=== PATIENT | male | born 1965 | race Caucasian/White ===

== ENCOUNTER 2017-04-16 10:32 | Emergency (ER) | payer BC ==
[~2017-04-16] VITALS: Ht 188 cm; Wt 96.0 kg
[2017-04-16 10:34] VITALS: Ht 188 cm; Wt 96.0 kg
[2017-04-16] MEDS ORDERED: ACETAMINOPHEN 500 MG TAB PO STA (11:29)
[2017-04-16] MEDS ORDERED: DIPHTH/TET/ACEL PERTUSS (ADULT) 0.5 ML VIAL IM* ONE (11:30)
[2017-04-16] MEDS ORDERED: LIDOCAINE 2% (MDV) 20 ML INJ INJ ONE (11:30)
[2017-04-16] MEDS ORDERED: CEPH-443 PO (12:42)
[2017-04-16] MEDS ORDERED: HYDR-906 PO (12:42)
--- NOTE | 2017-04-16 13:12 | ERD ---
ER Documentation Chief Complaint Date/Time DATE: 04/16/17 TIME: 13:04 Chief Complaint left thumb laceration HPI This is a 51 year old male presenting to the emergency department complaining of a laceration to the volar aspect of his left thumb status post getting injured with a knife while cooking an hour prior to being seen. Patient states the pain is minimal, he denies any restricted range of motion. He admits to having active bleeding. Patient does not remember his last tetanus shot. ROS All systems reviewed and are negative except as per history of present illness. Medications Home Meds Active Scripts Cephalexin* (Keflex*) 500 Mg Capsule, 500 MG PO QID for 7 Days, CAP Prov:JOSEF GARCÍA PA-C 04/16/17 Hydrocodone/Acetaminophen ([place] 5-325 Tablet) 1 Each Tablet, 1 TAB PO Q6H Y for PAIN, #6 TAB Prov:JOSEF GARCÍA PA-C 04/16/17 PMhx/Soc Hx Alcohol Use: No Hx Substance Use: No Hx Tobacco Use: No Physical Exam Vitals Vital Signs Date Time Temp Pulse Resp B/P Pulse Ox O2 Delivery O2 Flow Rate FiO2 04/16/17 10:34 98.0 74 19 126/67 100 Physical Exam General: WD/WN, in no apparent distress, non-toxic appearing HENT: NC/AT Eyes: Conjunctiva normal Neck: Supple Pulm: Normal labored breathing CV: Good capillary refill GI: Non-distended, no guarding Back: No masses Ext: No clubbing, cyanosis, or edema Neuro: Moves on all fours, no neuro deficits, sensation intact Skin: 2cm laceration on the left volar aspect of left thumb. no arterial. full ROM Psych: Normal mood Results 24 hrs Current Medications Medications (Trade) Dose Ordered Sig/Jovany Route PRN Reason Start Time Stop Time Status Last Admin Dose Admin Lidocaine (Xylocaine 2% (Mdv) 20 ml) 20 ml ONCE ONCE INJ 04/16/17 11:30 04/16/17 11:31 DC 04/16/17 11:35 Diphtheria/ Tetanus/Acell Pertussis (Adacel) 0.5 ml ONCE ONCE IM* 04/16/17 11:30 04/16/17 11:31 DC 04/16/17 11:35 Acetaminophen (Tylenol Tab) 1,000 mg ONCE STAT PO 04/16/17 11:29 04/16/17 11:31 DC 04/16/17 11:34 Procedures/MDM This is a 51-year-old male presenting to emergency department with a laceration on the left volar aspect of the thumb from a knife an hour prior to being seen. My clinical suspicion for fracture, nerve/tendon/arterial injury, FB is low due to physical examination. In the ED, patient was given Tylenol for pain and TDAP and prepared for wound closure, procedure below. Hemodynamically stable for home and neurovascularly intact pre and post treatment. Prescription Keflex was given for prophylaxis. Discussed to return to this facility or primary care physician in 10 days for suture removal. Discussed to return to the ER for any signs of infection or if condition worsens. Patient expressed agreement and understanding of the plan. PROCEDURE NOTE: Consent was obtained. Patient was positioned appropriately. Copious amount of normal saline was used for irrigation. Wound was cleansed with Betadine. Approximately 6cc of lidocaine without epinephrine was used as a digital block Patient was sterile draped with wound exposed. Wound was closed with good approximation with 7 x 4-0 simple interrupted Prolene sutures. Procedure tolerated without complications. Wound dressed with bacitracin and sterile gauze. Departure Diagnosis: Primary Impression: Laceration Condition: Stable Patient Instructions: Laceration, Hand Additional Instructions: Follow up in 2 days in your clinic for wound check. Follow up with your physician to remove the stitches in 10 days. Return to this facility if you are not improving as expected. JOSEF GARCÍA PA-C April 16, 2017 13:11
== END 2017-04-16 13:11 | disposition home or self-care (01) ==
LOC: FTE 10:32
DX: S61.012A Laceration without foreign body of left thumb without damage to nail, initial encounter (principal); W26.0XXA Contact with knife, initial encounter; Y92.9 Unspecified place or not applicable; Z23 Encounter for immunization
CPT/HCPCS: 90471; 90715